=== PATIENT | female | born 1955 | race Caucasian/White ===

== ENCOUNTER 2017-04-27 10:09 | Emergency (ER) | payer MEDICAID ==
[2017-04-27 10:18] VITALS: O2SAT 97
--- NOTE | 2017-04-27 11:34 | C.PDOC ---
History Of Present Illness 61 yo female w/PMHx of IDDM, HTN, COPD, come in for evaluation of Right sided chest wall reproducible chest pain describes as burning sensation gradually developed for past 2 days. Pt sts, pain is constant, worse with movement. Otherwise, pt denies known trauma or injury, fever, chills, headache, dizziness , cough, left sided CP, SOB, dyspnea, wheezing, palpitation, diaphoresis, abd. pain, N/V/D, denies any other active complaints. Time Seen by Provider: 04/27/17 11:19 Chief Complaint (Nursing): Back Pain History Per: Patient Current Symptoms Are (Timing): Still Present Quality Of Discomfort: Burning Past Medical History Reviewed: Historical Data, Nursing Documentation, Vital Signs Vital Signs: Last Vital Signs Temp 98.0 F 04/27/17 12:52 Pulse 75 04/27/17 12:52 Resp 18 04/27/17 12:52 BP 140/90 04/27/17 12:52 Pulse Ox 97 04/27/17 12:57 - Medical History PMH: COPD, Diabetes, HTN Family History: States: No Known Family Hx - Social History Hx Tobacco Use: Yes Hx Alcohol Use: No Hx Substance Use: No - Immunization History Hx Tetanus Toxoid Vaccination: No Hx Influenza Vaccination: No Hx Pneumococcal Vaccination: No Review Of Systems Except As Marked, All Systems Reviewed And Found Negative. Constitutional: Negative for: Fever, Chills Eyes: Negative for: Vision Change, Redness ENT: Negative for: Throat Pain Cardiovascular: Positive for: Chest Pain. Negative for: Palpitations, Orthopnea , Paroxysmal Noc. Dyspnea, Edema, Light Headedness Respiratory: Negative for: Cough, Shortness of Breath, SOB with Excertion, Pleuritic Pain, Wheezing Gastrointestinal: Negative for: Nausea, Vomiting, Abdominal Pain, Diarrhea Genitourinary: Negative for: Dysuria Musculoskeletal: Negative for: Neck Pain, Back Pain Skin: Negative for: Rash Neurological: Negative for: Weakness, Numbness, Altered Mental Status, Headache , Dizziness Physical Exam - Physical Exam Appears: Well, Non-toxic, No Acute Distress Skin: Normal Color, Warm, Dry, No Rash Eye(s): bilateral: PERRL Nose: No Flaring Oral Mucosa: Moist Throat: No Erythema, No Exudate Neck: Supple Lymphatic: No Axilla Node Tenderness Chest: Tenderness (mild reproducible tenderness over Right anterior chest wall overlying 4-5 intercostal spaces extend to midaxillary and posterior Right chest wall. NO skin changes, no rash, no palpable deformity.), No Ecchymosis, No Subcutaneous Emphysema Cardiovascular: Rhythm Regular Respiratory: No Decreased Breath Sounds, No Accessory Muscle Use, No Stridor, No Wheezing Gastrointestinal/Abdominal: Soft, No Tenderness Back: No CVA Tenderness Extremity: Normal ROM, No Pedal Edema Neurological/Psych: Oriented x3, Normal Speech ED Course And Treatment ECG: Interpreted By Me, Viewed By Me ECG Rhythm: Sinus Rhythm ECG Interpretation: Normal Interpretation Of ECG: SR@66/min, NAD, T wave inversion, no acte T wave or ST-T changes. Rate From EC (BPM) O2 Sat by Pulse Oximetry: 97 (RA) Pulse Ox Interpretation: Normal - Other Rad CXR X-Ray: Viewed By Me, Read By Radiologist Interpretation: HISTORY: Cough. COMPARISON: None available. TECHNIQUE: Chest PA and lateral. FINDINGS: Examination limited by habitus. LUNGS: Linear atelectasis or scarring within the right lung apex. Biapical pleural thickening. No focal consolidation. Please note that chest x-ray has limited sensitivity for the detection of pulmonary masses. PLEURA: No significant pleural effusion identified. No definite pneumothorax . CARDIOVASCULAR: Heart size appears within normal limits. OSSEOUS STRUCTURES: Mild degenerative changes of the spine. VISUALIZED UPPER ABDOMEN: Unremarkable. OTHER FINDINGS : None. IMPRESSION: Linear atelectasis or scarring within the right lung apex. Biapical pleural thickening. Progress Note: On re-eval, pt is afebrile, hemodynamicaly stable. non-toxic, not in any apparent distress. PulseOx 97% RA. ENT: no acute finidngs. neck: Supple, no carotid bruits, no JVD. Lungs: CTA B/L, BS equal B/L. CVS: (+)S1S2 , reg. Abd: benign. Back: (-) CVA tenderness. SKin: no rash. FSBS 270, pt was informed with results " I did not take my medictaion today yet". CXR, EKG review and appears without acute abnoramlities. troponin I- WNL. Case discussed with ED attending Dr. Muñoz and dischare with outpt f/u recommend at this time. results and findings discussed with pt, ref. to f/u with PMD in 1-2 days for re-eavl. retur nifany new hcanges. Pt understand, stable for discharge now. Disposition Counseled Patient/Family Regarding: Studies Performed, Diagnosis, Need For Followup - Disposition Referrals: Guero Huynh MD [Medical Doctor] - Disposition: HOME/ ROUTINE Disposition Time: 11:45 Condition: STABLE Additional Instructions: Take pain medication as need Observe for any new changes-rash developing,possible onset of Shingles Follow up with PMD in 2-3 days for re-evaluation. Return to ED if any worsening or new changes. Prescriptions: Gabapentin [Neurontin] 300 mg PO HS #10 cap Instructions: Chest Wall Pain (ED) - Clinical Impression Clinical Impression: Chest wall pain
--- NOTE | 2017-04-27 12:02 | RAD ---
HISTORY: Cough COMPARISON: None available. TECHNIQUE: Chest PA and lateral FINDINGS: Examination limited by habitus. LUNGS: Linear atelectasis or scarring within the right lung apex. Biapical pleural thickening. No focal consolidation. Please note that chest x-ray has limited sensitivity for the detection of pulmonary masses. PLEURA: No significant pleural effusion identified. No definite pneumothorax . CARDIOVASCULAR: Heart size appears within normal limits. OSSEOUS STRUCTURES: Mild degenerative changes of the spine. VISUALIZED UPPER ABDOMEN: Unremarkable. OTHER FINDINGS: None. IMPRESSION: Linear atelectasis or scarring within the right lung apex. Biapical pleural thickening.
[2017-04-27 12:52] VITALS: BP 140/90; PULSE 75; RESP 18; TEMP 98
--- NOTE | 2017-04-28 13:05 | CARD ---
APPROVED REPORT EKG Measurement Heart [id number] <Conclusion> Normal sinus rhythm Normal ECG
== END 2017-04-27 13:45 | disposition home or self-care (01) ==
LOC: C.ER 10:09
DX: R07.89 Other chest pain (principal)

== ENCOUNTER 2017-05-13 10:07 | Emergency (ER) | payer MEDICAID ==
[2017-05-13 10:14] VITALS: BMI 28.8
[2017-05-13 10:17] VITALS: TEMP 98
[2017-05-13] MEDS ORDERED: Morphine 4 MG/ML VIAL ONE (10:51)
--- NOTE | 2017-05-13 10:55 | C.PDOC ---
History Of Present Illness 61 y/o F presents to the ER c/o right sided chest and upper back pain for the last month. Pain is sharp, worsens with movement and deep breathing. Patient was seen here on the April 27, CXR done (normal). Patient taking Gabapentin and Tramadol given to her by PMD without relief. She denies falls/injuries, rashes , cough, fever, SOB, palpitations. Time Seen by Provider: 05/13/17 10:11 Chief Complaint (Nursing): Chest Pain History Per: Patient History/Exam Limitations: no limitations Onset/Duration Of Symptoms: Days (last month) Current Symptoms Are (Timing): Still Present Severity: Mild Quality: Sharp Exacerbating Factors: Movement, Deep Breathing Alleviating Factors: None Additional History Per: Patient Past Medical History Reviewed: Historical Data, Nursing Documentation, Vital Signs Vital Signs: Last Vital Signs Temp 98.0 F 05/13/17 10:17 Pulse 78 05/13/17 14:05 Resp 18 05/13/17 14:05 BP 121/77 05/13/17 14:05 Pulse Ox 95 05/13/17 14:05 - Medical History PMH: Anemia, Anxiety, COPD, Depression, Diabetes, HTN, Hyperlipidemia Family History: States: No Known Family Hx - Social History Hx Tobacco Use: Yes Hx Alcohol Use: No Hx Substance Use: No - Immunization History Hx Tetanus Toxoid Vaccination: No Hx Influenza Vaccination: No Hx Pneumococcal Vaccination: No Review Of Systems Except As Marked, All Systems Reviewed And Found Negative. Constitutional: Negative for: Fever, Other (Fall or injury) Cardiovascular: Positive for: Chest Pain. Negative for: Palpitations Respiratory: Negative for: Cough, Shortness of Breath Musculoskeletal: Positive for: Back Pain Skin: Negative for: Rash Physical Exam - Physical Exam Appears: Well, Non-toxic, In Acute Distress (Mild discomfort due to pain) Skin: Normal Color, Warm, Dry, No Rash (on chest/back skin) Head: Atraumatic, Normacephalic Oral Mucosa: Moist Neck: Normal, Normal ROM, No Midline Cervical Tenderness, No Paracervical Tenderness, No Step Off Deformity, Supple Chest: Tenderness (Mild tenderness to palpation at right anterolateral ribs) Cardiovascular: Rhythm Regular Respiratory: Normal Breath Sounds, No Accessory Muscle Use, No Rales, No Rhonchi , No Wheezing, Other (Speaking in full sentences) Gastrointestinal/Abdominal: Normal Exam, Bowel Sounds, Soft, No Tenderness Extremity: Normal ROM, No Pedal Edema, No Calf Tenderness, Capillary Refill (<2 sec all digits ), No Deformity, No Swelling Extremity: Bilateral: Normal Color And Temperature, Normal ROM Neurological/Psych: Oriented x3 Gait: Steady ED Course And Treatment - Laboratory Results Result Diagrams: 05/13/17 11:02 05/13/17 11:02 ECG: Interpreted By Me, Viewed By Me (NSR 83 bpm, normal axis, no acute ST/T wave changes) ECG Interpretation: No Acute Changes Interpretation Of ECG: No acute ST/T wave changes. Normal axis. O2 Sat by Pulse Oximetry: 96 (RA) Pulse Ox Interpretation: Normal - CT Scan/US CT CHEST Other Rad Studies (CT/US): Read By Radiologist, Radiology Report Reviewed CT/US Interpretation: Accession No. : [id number]. Patient Name / ID : HIRAL LADD / [id number]. Exam Date : 05/13/2017 13:42:55 ( Approved ). Study Comment : Sex / Age : F / 61Y. Creator : CHRISTI HAMM MD. Dictator : CHRISTI HAMM MD. Marine Specialist : Lockstitch Lining Maker : CHRISTI HAMM MD. Approver2 : Report Date : 05/13/2017 14:18:56. My Comment : . PROCEDURE: CT Chest with contrast. HISTORY: Persistent right sided chest/rib pain. COMPARISON: Plain radiographs performed the same day. TECHNIQUE: Contiguous axial images were obtained through the chest with intravenous contrast enhancement. Sagittal and coronal reconstructions were performed. IV contrast: 100 mL Visipaque. Radiation dose (DLP): 329.24 mGy-cm. This CT exam was performed using one or more of the following dose reduction techniques: Automated exposure control, adjustment of the mA and/or kV according to patient size, and/or use of iterative reconstruction technique. FINDINGS: LUNGS: There is a 5 mm subpleural nodule in the left upper lobe (series 3, image 40). There is scattered patchy ground-glass attenuation in both lungs and mild scattered centrilobular emphysema. There are no endobronchial lesions. There is no focal consolidation or mass. MEDIASTINUM: The aorta is normal in size. The heart is normal in size. There is no pericardial effusion. There are no pathologic mediastinal or hilar lymph nodes. Subcentimeter mediastinal lymph nodes are likely reactive in etiology. PLEURA: No pleural fluid. No pneumothorax. BONES: No acute rib fracture. No destructive lesion. Mild multilevel degenerative disc disease and mild diffuse bone demineralization. UPPER ABDOMEN: There is fatty infiltration in the liver. Both adrenal glands are normal in size. OTHER FINDINGS: None. IMPRESSION: 1. No evidence of acute rib fracture, pneumothorax, pleural effusion or pneumonia. Patchy ground- glass attenuation in both lungs is nonspecific and could be related to nonspecific infection/ inflammation. Also noted is mild scattered centrilobular emphysema. 2. 5 mm subpleural nodule in the left upper lobe. A follow-up CT scan in six-month interval is recommended to assess stability. 3. Fatty liver. Progress Note: Plans: Blood work, EKG, CT chest ordered and reviewed. Patient given IV NS bolus, IV morphine. Reevaluation Time: 14:30 Reassessment Condition: Improved (Patient reassessed, is resting comfortably, in no current pain. She states she is feeling better. CT chest, blood work and EKG unremarkable. Patient given Rx for Naprosyn and Flexeril, and was instructed to follow up with PMD in 1-2 days. She understands she should return to ED if symptoms worsen.) Medical Decision Making Medical Decision Making: differential diagnoses considered: musculoskeletal pain, costochondritis, PE, pneumonia, rib fx, WA/ACS, shingles, aortic dissection, lung CA, pancreatitis, aortic dissection Disposition Counseled Patient/Family Regarding: Studies Performed, Diagnosis, Need For Followup, Rx Given - Disposition Referrals: Guero Holt MD [Medical Doctor] - Disposition: HOME/ ROUTINE Disposition Time: 14:30 Condition: STABLE Additional Instructions: SEGUIMIENTO CON DR HOLT EN 1-2 JACOB USE [employer]ICATI[employer]S GIO SEA NECESARIO DEVUELVA A LA ARMANI DE EMERGENCIA SI LOS SNTOMAS EMPEORARAN Prescriptions: Cyclobenzaprine [Cyclobenzaprine HCl] 10 mg PO BID PRN #15 tab PRN Reason: Muscle Spasm Naproxen [Naprosyn Tab] 375 mg PO BID PRN #20 tab PRN Reason: pain Instructions: Chest Wall Pain (ED) Forms: [employer] (Hebrew) Print Language: ALBANIAN - Clinical Impression Clinical Impression: Chest wall pain - Scribe Statement The provider has reviewed the documentation as recorded by the Scriblori hu All medical record entries made by the Yoniblori were at my direction and personally dictated by me. I have reviewed the chart and agree that the record accurately reflects my personal performance of the history, physical exam, medical decision making, and the department course for this patient. I have also personally directed, reviewed, and agree with the discharge instructions and disposition.
[2017-05-13 11:18] LABS: BASO % 0.7 % (0.0-2.0); EOS # 0.1 K/uL (0.0-0.7); EOS % 1.8 % (0.0-4.0); HEMATOCRIT 47.1 % (34.0-47.0); LYMPH # 2.3 K/uL (1.0-4.3); LYMPH % 35.1 % (20.0-40.0); MEAN CELL VOLUME 91.2 fL (81.0-99.0); MEAN PLATELET VOLUME 10.7 fL (7.2-11.7); MONO # 0.5 K/uL (0.0-0.8); MONO % 7.4 % (0.0-10.0); NRBC % 0.1 % (0.0-2.0); RED CELL DISTRIBUTION WIDTH 13.7 % (11.5-14.5); WHITE BLOOD COUNT 6.5 K/uL (4.8-10.8)
[2017-05-13 11:24] LABS: CHLORIDE 97 mmol/L (98-107); POTASSIUM 4.2 mmol/L (3.6-5.2); SODIUM 135 mmol/L (132-148)
[2017-05-13 11:26] LABS: ALB/GLOB RATIO 1.4 (1.0-2.1); ALKALINE PHOSPHATASE 70 U/L (38-126); AST/SGOT 20 U/L (14-36); BILIRUBIN,TOTAL 0.5 mg/dL (0.2-1.3); BLOOD UREA NITROGEN 14 mg/dL (7-17); CARBON DIOXIDE 23 mmol/L (22-30); GFR AFRICAN-AMERICAN > 60; PARTIAL THROMBOPLASTIN TIME 31 SECONDS (21-34)
[2017-05-13 11:27] LABS: ALT/SGPT 23 U/L (9-52); CALCIUM 9.4 mg/dl (8.6-10.4); GLUCOSE,RANDOM 283 mg/dL (65-105)
[2017-05-13] MEDS ORDERED: Iodixanol 320 MG/ML 100 ML BOTTLE IV ONE (13:38)
[2017-05-13 14:05] VITALS: BP 121/77; PULSE 78; RESP 18
--- NOTE | 2017-05-13 14:20 | CT ---
PROCEDURE: CT Chest with contrast HISTORY: Persistent right sided chest/rib pain COMPARISON: Plain radiographs performed the same day TECHNIQUE: Contiguous axial images were obtained through the chest with intravenous contrast enhancement. Sagittal and coronal reconstructions were performed. IV contrast: 100 mL Visipaque Radiation dose (DLP): 329.24 mGy-cm. This CT exam was performed using one or more of the following dose reduction techniques: Automated exposure control, adjustment of the mA and/or kV according to patient size, and/or use of iterative reconstruction technique. FINDINGS: LUNGS: There is a 5 mm subpleural nodule in the left upper lobe (series 3, image 40). There is scattered patchy ground-glass attenuation in both lungs and mild scattered centrilobular emphysema. There are no endobronchial lesions. There is no focal consolidation or mass. MEDIASTINUM: The aorta is normal in size. The heart is normal in size. There is no pericardial effusion. There are no pathologic mediastinal or hilar lymph nodes. Subcentimeter mediastinal lymph nodes are likely reactive in etiology. PLEURA: No pleural fluid. No pneumothorax. BONES: No acute rib fracture. No destructive lesion. Mild multilevel degenerative disc disease and mild diffuse bone demineralization. UPPER ABDOMEN: There is fatty infiltration in the liver. Both adrenal glands are normal in size. OTHER FINDINGS: None. IMPRESSION: 1. No evidence of acute rib fracture, pneumothorax, pleural effusion or pneumonia. Patchy ground-glass attenuation in both lungs is nonspecific and could be related to nonspecific infection/ inflammation. Also noted is mild scattered centrilobular emphysema. 2. 5 mm subpleural nodule in the left upper lobe. A follow-up CT scan in six-month interval is recommended to assess stability. 3. Fatty liver.
--- NOTE | 2017-05-14 11:09 | CARD ---
APPROVED REPORT EKG Measurement Heart [id number] <Conclusion> Normal sinus rhythm Normal ECG
[2017-05-15 14:29] VITALS: O2SAT 96
== END 2017-05-13 14:44 | disposition home or self-care (01) ==
LOC: C.ER 10:07
DX: R07.9 Chest pain, unspecified (principal); I10 Essential (primary) hypertension; E78.5 Hyperlipidemia, unspecified; E11.9 Type 2 diabetes mellitus without complications
CPT/HCPCS: 71260; 80053; 82550; 82553; 82948; 84484; 85025; 85378; 85610; 85730; 93005; 96374; 99285; J2270; Q9967